=== PATIENT | male | born 1980 | race Caucasian/White ===

== ENCOUNTER 2016-11-01 21:33 | Emergency (ER) | payer OTHER ==
--- NOTE | ~2016-11-01 | CR127 ---
[facility] A Service of [facility] RADIOLOGY TEXT RESULTS PATIENT: GELACIO BRISENO LOCATION: [facility] : 84 UNIT #: [id number] AGE: [address]: Cedric Campos MD SEX: M ORDER DR: [id number] [facility] [address] [place], [place] [address] [id number] E MR#: [id number] Acc #: [id number] NAME: GELACIO BRISENO. : 1980 SEX: M STUDY DATE/TIME: 11/01/2016 18:59 UNIT: [facility] ROOM: STUDY DESCRIPTION: CR Foot Complete Min 3 View Rt Attending Physician: Cedric Campos M.D. Ordering Physician: Cedric Campos M.D. Primary Care Physician: Primary Care Physician No MEDICAL IMAGING REPORT This report is preliminary unless electronic signature is present EXAM Right foot 3 views HISTORY Foot pain and swelling after fall today. FINDINGS The tarsal, metatarsal, and phalangeal elements are all anatomically normal in position and alignment. There are no articular defects. No fractures or radiopaque foreign bodies in the soft tissues are apparent. IMPRESSION Normal foot. Dictated by... Pedrito Berg M.D. THIS IS AN ELECTRONICALLY VERIFIED REPORT Pedrito Berg M.D. at 11/02/2016 3:04 PM DFL/pia TD: 11/02/2016 09:31 JOB #: [id number] MEDICAL IMAGING REPORT Page 1 of 1 COPY
--- NOTE | ~2016-11-01 | EKG ---
PATIENT: GELACIO BRISENO UNIT #: [id number] Ventricular Rate: 104 BPM Atrial Rate: 104 BPM P-R Interval: 184 ms QRS Duration: 88 ms Q-T Interval: 328 ms QTC Calculation(Bezet): 431 ms P [place]: 51 degrees Calculated R [place]: 68 degrees Calculated T [place]: 39 degrees Diagnosis Line: Sinus tachycardia Diagnosis Line: Otherwise normal ECG Diagnosis Line: No previous ECGs available Diagnosis Line: Confirmed by MARISOL MAR MD ([id number]) on 11/02/2016 Diagnosis Line: 11:00:00 PM INTERPRETING MD: ISABELA REYNOLDS
--- NOTE | ~2016-11-01 | CR21 ---
[facility] A Service of [facility] RADIOLOGY TEXT RESULTS PATIENT: GELACIO BRISENO LOCATION: [facility] : 82 UNIT #: [id number] AGE: [address]: Cedric Campos MD SEX: M ORDER DR: [id number] [facility] [address] [facility] [address] [facility]. [place], [place] [address] [id number] E MR#: [id number] Acc #: [id number] NAME: GELACIO BRISENO. : 1980 SEX: M STUDY DATE/TIME: 11/01/2016 18:57 UNIT: [facility] ROOM: STUDY DESCRIPTION: CR Ankle Min 3 Views Rt Attending Physician: Cedric Campos M.D. Ordering Physician: Cedric Campos M.D. Primary Care Physician: Primary Care Physician No MEDICAL IMAGING REPORT This report is preliminary unless electronic signature is present EXAM Right ankle 3 views HISTORY Ankle pain and swelling after fall today. FINDINGS 3 views of the right ankle demonstrate ddbe-lh-[id number] soft tissue swelling about the ankle, greater over the lateral malleolus. Ankle alignment is satisfactory. No fracture, joint space narrowing or dislocation. IMPRESSION 1. Soft tissue swelling about the ankle. 2. No fracture or joint space narrowing or dislocation. Dictated by... Pedrito Berg M.D. THIS IS AN ELECTRONICALLY VERIFIED REPORT Pedrito Berg M.D. at 11/02/2016 3:04 PM LISA/pam TD: 11/02/2016 09:09 JOB #: [id number] MEDICAL IMAGING REPORT Page 1 of 1 COPY
[2016-11-01 19:17] LABS: BASOPHIL# 0.1 X10e3 (0-0.3); BASOPHIL% 0.5 % (0-2.5); EOSINOPHIL# 0.2 X10e3 (0-0.7); EOSINOPHIL% 1.1 % (0.0-7.0); HEMATOCRIT 39.6 % (38.0-50.0); HEMOGLOBIN 13.4 gm/dL (13.0-16.0); LYMPHOCYTE% 11.3 % (17.0-45.0); MEAN CELL VOLUME 89.2 FL (83-96); MEAN CORPUSCULAR HEMOGLOBIN 30.2 PG (28-34); MEAN CORPUSCULAR HGB CONC 33.8 g/dL (30-36); MEAN PLATELET VOLUME 8.3 FL (6.5-11.5); MONOCYTE# 1.7 X10e3 (0-1.0); MONOCYTE% 9.7 % (3.0-12.0); NEUTROPHIL# 13.3 X10e3 (1.5-7.1); NEUTROPHIL% 77.4 % (40-75); PLATELET COUNT 264 X10e3 (140-420); RED BLOOD COUNT 4.44 X10e (3.90-5.60); RED CELL DISTRIBUTION WIDTH 13.9 % (11.0-15.5); WHITE BLOOD COUNT 17.2 X10e3 (4.0-10.5)
[2016-11-01 19:18] LABS: DIFF IND YES
[2016-11-01 19:33] LABS: BILIRUBIN,TOTAL 0.8 mg/dL (0.2-2.0); CALCIUM SERUM 9.2 mg/dL (8.4-10.2); CREATININE SERUM 0.9 mg/dL (0.6-1.4); POTASSIUM 3.3 mmol/L (3.5-5.1); PROTEIN TOTAL SERUM 7.2 g/dL (6.0-8.3)
[2016-11-01 19:50] LABS: PLATELET ESTIMATE NORMAL (NORMAL); RBC NORMAL YES
[2016-11-01 19:55] LABS: POC - CKMB 7.2 ng/mL (0.0-7.9); POC - TROPONIN <0.05 ng/mL (<=0.05)
[~2016-11-01 21:33] MED LIST: BENTYL20 MG PO; CIPRO PO; FAMOTIDINE PO; HYDROCODONE/APA1 T16 PO; K-DUR20 ME1 PO; NO MEDICATIONS; NORCO 5/325 TAB1 TAB PO; PHENERGAN25 M1 PO; PRILOSEC40 MG PO; VICODIN PO; VOLTAREN50 MG PO; ZOFRAN ODT4 MG PO
[2016-11-01 21:57] LABS: URINE SOURCE CLEAN CATCH
[2016-11-01 22:03] LABS: URINE APPEARANCE TURBID; URINE BILIRUBIN NEG (NEG); URINE BLOOD NEG (NEG); URINE COLOR YELLOW; URINE GLUCOSE NEG (NEG); URINE KETONE NEG (NEG); URINE LEUKOCYTE ESTERASE 2+ (NEG); URINE NITRATE NEG (NEG); URINE PH 7.5 (5-8); URINE PROTEIN NEG (NEG); URINE SPECIFIC GRAVITY 1.012 (1.003-1.035); URINE UROBILINOGEN 0.2 MG/DL (NEG)
[2016-11-01 22:05] LABS: CULTURE INDICATED? YES; URINE BACTERIA AUWI NEG (NEGATIVE); URINE SQUAMOUS EPITHELIAL CELL OCC /[HPF]; UWBCS1 AUWI 25-50 (0-5)
[2016-11-01 22:19] LABS: AMPHETAMINE POS (NEG); BARBITURATES NEG (NEG); BENZODIAZEPINES NEG (NEG); COCAINE NEG (NEG); MARIJUANA NEG (NEG); OPIATES NEG (NEG); TRICYCLIC ANTIDEPRESSANTS NEG (NEG); U METHADONE NEG (NEG)
[2016-11-01 23:52] LABS: POC - CKMB 3.5 ng/mL (0.0-7.9); POC - TROPONIN <0.05 ng/mL (<=0.05)
== END 2016-11-02 01:05 | disposition home or self-care (01) ==
LOC: CED 21:33
PROVIDERS: Emergency Medicine
DX: T75.4XXA Electrocution, initial encounter (principal); L03.115 Cellulitis of right lower limb; F15.10 Other stimulant abuse, uncomplicated; K21.9 Gastro-esophageal reflux disease without esophagitis; F17.200 Nicotine dependence, unspecified, uncomplicated; Z90.49 Acquired absence of other specified parts of digestive tract; Z98.890 Other specified postprocedural states; W86.8XXA Exposure to other electric current, initial encounter; Y92.9 Unspecified place or not applicable
CPT/HCPCS: 36415; 73610; 73630; 80053; 80307; 81003; 82553; 84484; 85025; 87086; 93005; 96361; 96365; 96375; 99284; J1170; J2405

== ENCOUNTER 2016-11-06 23:57 | Emergency (ER) | payer OTHER ==
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
[2016-11-07 02:48] LABS: URINE SOURCE CLEAN CATCH
[2016-11-07 02:57] LABS: URINE APPEARANCE CLEAR; URINE BILIRUBIN NEG (NEG); URINE BLOOD NEG (NEG); URINE COLOR DK YELLOW; URINE GLUCOSE NEG (NEG); URINE KETONE TRACE (NEG); URINE LEUKOCYTE ESTERASE TRACE (NEG); URINE NITRATE NEG (NEG); URINE PH 5.5 (5-8); URINE PROTEIN TRACE (NEG); URINE SPECIFIC GRAVITY 1.022 (1.003-1.035); URINE UROBILINOGEN 0.2 MG/DL (NEG)
[2016-11-07 03:00] LABS: CULTURE INDICATED? YES; URINE BACTERIA AUWI NEG (NEGATIVE); URINE SQUAMOUS EPITHELIAL CELL NONE SEEN /[HPF]
[2016-11-07 03:16] LABS: AMPHETAMINE POS (NEG); BARBITURATES NEG (NEG); BENZODIAZEPINES NEG (NEG); COCAINE NEG (NEG); MARIJUANA NEG (NEG); OPIATES NEG (NEG); TRICYCLIC ANTIDEPRESSANTS NEG (NEG); U METHADONE NEG (NEG)
== END 2016-11-07 04:10 | disposition home or self-care (01) ==
LOC: CED 23:57
PROVIDERS: Nurse Practitioner
DX: S43.101A Unspecified dislocation of right acromioclavicular joint, initial encounter (principal); M54.5 Low back pain; K21.9 Gastro-esophageal reflux disease without esophagitis; I10 Essential (primary) hypertension; F17.210 Nicotine dependence, cigarettes, uncomplicated; W50.1XXA Accidental kick by another person, initial encounter; Y92.89 Other specified places as the place of occurrence of the external cause
CPT/HCPCS: 70150; 70450; 71020; 72125; 73030; 74176; 80307; 81003; 82947; 87086; 99284

== ENCOUNTER 2016-11-10 06:51 | Emergency (ER) | payer OTHER ==
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
== END 2016-11-10 08:35 | disposition home or self-care (01) ==
LOC: CED 06:51
DX: S43.102D Unspecified dislocation of left acromioclavicular joint, subsequent encounter (principal); K21.9 Gastro-esophageal reflux disease without esophagitis; F17.200 Nicotine dependence, unspecified, uncomplicated; X58.XXXD Exposure to other specified factors, subsequent encounter; Y92.9 Unspecified place or not applicable
CPT/HCPCS: 73030; 99283